=== PATIENT | male | born 1975 | race Caucasian/White ===

== ENCOUNTER 2019-04-08 16:13 | Emergency (ER) | payer BC, OTHER ==
[~2019-04-08] VITALS: Ht 180.3 cm; Wt 83.7 kg
[2019-04-08 16:40] VITALS: BP 132/88
[2019-04-08] MEDS ORDERED: LIDOCAINE-MPF 1%, 5ML ONE (16:57)
[2019-04-08] MEDS ORDERED: LIDOCAINE-MPF 1%, 5ML INFIL ONE (17:00)
[2019-04-08] MEDS ORDERED: BACITRACIN ZINC OINT 500U/GM, 0.9 GM ONE (17:29)
--- NOTE | 2019-04-08 18:13 | NUR ---
pt sutured by donald, wound dressed with bacitracin dressing by sona per edrosemarie's orders. pt given dc instructions by donald sousa. pt amb to dc desk with steady gait, nadn at dc.
== END 2019-04-08 18:11 | disposition home or self-care (01) ==
LOC: ED 17:40
DX: S81.811A Laceration without foreign body, right lower leg, initial encounter (principal); X58.XXXA Exposure to other specified factors, initial encounter; Y93.89 Activity, other specified; Y92.69 Other specified industrial and construction area as the place of occurrence of the external cause; Y99.8 Other external cause status
CPT/HCPCS: 12004; 99283